=== PATIENT | female | born 1950 | race Caucasian/White ===

== ENCOUNTER 2021-12-07 20:47 | Emergency (ER) | payer OTHER | END 2021-12-08 01:01 | disposition home or self-care (01) | LOC: MADERS 20:47 | DX: R51.9 Headache, unspecified (principal); F13.20 Sedative, hypnotic or anxiolytic dependence, uncomplicated; I25.10 Atherosclerotic heart disease of native coronary artery without angina pectoris; I10 Essential (primary) hypertension; Z79.899 Other long term (current) drug therapy | CPT/HCPCS: 70450; 72131 ==

== ENCOUNTER 2023-10-05 20:50 | Emergency (ER) | payer MEDICARE ==
[2023-10-05 21:40] LABS: #Basophils 0.1 thou/uL (0.0-0.2); #Eosinphils 0.4 thou/uL (0.0-0.7); #Lymphocytes 2.7 thou/uL (1.20-3.40); #Monocytes 0.7 thou/uL (0.11-0.59); #Neutrophils 3.9 thou/uL (1.40-6.50); %Basophils 1.1 % (0.0-1.0); %Eosinophils 5.1 % (0.0-10.0); %Monocytes 9.1 % (0.0-10.0); %Neutrophils 49.7 % (42.0-75.0); Hematocrit 33.8 % (36.0-47.0); Hemoglobin 10.1 g/dL (12.0-16.0); Mean Corpuscular Hemoglobin 24.6 pg (27.0-31.0); Mean Corpuscular Volume 82.2 fl (78.0-98.0); Mean Platelet Volume 6.5 fL (7.4-10.4); Platelet Count 361 10x3/uL (130-400); RBC Distribution Width 16.7 % (11.5-14.5); Red Blood Cell (RBC) Count 4.12 mill/uL (4.20-5.40); White Blood Cell (WBC) Count 7.8 10x3/uL (4.8-10.8)
[2023-10-05 22:11] LABS: Base Excess-Venous 1.1 mmol/L (-2.0 to 3.0); Bicarbonate (HCO3v) 26.8 mmol/L (22.0-28.0); CO2 Tension (PvCO2) 46.7 mmHg (42.0-51.0); Calcium, Ionized 1.11 mmol/L (1.15-1.33); Hemoglobin - Calc 10.4 g/dL (12.0-16.0); Potassium 3.8 mmol/L (3.5-5.1); T. Carbon Dioxide 28.2 mmol/L (22.0-28.0); vO2 Saturation-calc 66.4 % (60.0-85.0)
[2023-10-05 22:16] LABS: ALT (SGPT) 9 U/L (8-55); AST (SGOT) 12 U/L (5-34); Acetaminophen Less than 10 mcg/mL (10.0-30.0); Albumin 3.6 g/dL (3.4-4.8); Alcohol Less than 10.0 mg/dL (Less than 10); Alkaline Phosphatase 85 U/L (40-110); Anion Gap 15 mmol/L (10-20); BUN (Urea Nitrogen) 13 mg/dL (9.8-20.1); Bilirubin, Total 0.2 mg/dL (0.2-1.2); Calc. Creatinine Clearance 0 mL/min (70-130); Calcium 8.8 mg/dL (7.8-10.44); Carbon Dioxide 23 mmol/L (23-31); Chloride 107 mmol/L (98-107); Estimated GFR 51; Globulin 3.3 g/dL (2.4-3.5); Glucose 90 mg/dL (83-110); Protein, Total 6.9 g/dL (5.8-8.1); Salicylate Less than 8.0 mg/dL (15.0-30.0); Sodium 141 mmol/L (136-145)
[2023-10-05 23:08] LABS: Amphetamine Not Detected (NotDetected); Barbiturates Screen Not Detected (NotDetected); Benzodiazepine Screen Detected (NotDetected); Cocaine Metabolite Screen Not Detected (NotDetected); Methadone Not Detected (NotDetected); Methamphetamine Not Detected (NotDetected); Opiate Screen Detected (NotDetected); Oxycodone Screen Not Detected (NotDetected); Phencyclidine (PCP) Not Detected (NotDetected); THC/Cannabinoid Screen Not Detected (NotDetected); Tricyclic Screen Not Detected (NotDetected)
[2023-10-05] MEDS ORDERED: Sodium Chloride 0.9% 1,000 ML ONE (23:26)
== END 2023-10-06 07:40 | disposition home or self-care (01) ==
LOC: MADERS 20:50
DX: T42.4X1A Poisoning by benzodiazepines, accidental (unintentional), initial encounter (principal); I10 Essential (primary) hypertension
CPT/HCPCS: 51701; 70450; 80053; 80306; 80307; 82330; 82435; 82803; 84132; 84295; 85014; 85025; 93005; 94760; 96360; 96361; 99285; J7050